=== PATIENT | male | born 1940 | race Caucasian/White ===

== ENCOUNTER 2016-11-08 18:21 | Inpatient (IN) | payer OTHER ==
[~2016-11-08] VITALS: Ht 177.8 cm; Wt 63.6 kg
[~2016-11-08 18:21] MED LIST: ADULT LOW DOSE81 M1 PO; AMOX TR-K CLV1 EAC3 PO; ASPIR-LOW81 MG PO; ASPIRIN81 M1 PO; ASPIRIN81 M2 PO; AUGMENTIN875 MG PO; Apresoline PO; Aspirin E.C. PO; BENZONATATE200 MG PO; CARDIZEM CD120 MG PO; CARTIA XT120 MG PO; CEFTIN250 MG PO; CEFTIN500 MG PO; CIPRO250 MG PO; CIPRO500 MG PO; CLONAZEPAM0.5 MG; CORDARONE200 MG PO; COUMADIN1 MG PO; COUMADIN2 MG PO; COUMADIN2.5 MG PO; COUMADIN3 MG PO; COUMADIN5 MG PO; COUMADIN7.5 MG PO; CYANOCOBAL1000 MCG/2 IM; Cardizem PO; Ceftin PO; Coumadin Protocol PO; Coumadin,Jantoven PO; DIGOXIN125 MCG PO; DIURETIC; DOCUSATE SODIU100 MG PO; Dulcolax PO; ELMIRON100 MG PO; ENDOCET 5-3251 EACH PO; FLOMAX0.4 MG PO; FORTAMET500 M1 PO; FUROSEMIDE20 MG PO; Flomax PO; GLIPIZIDE5 MG PO; GLUCOPHAGE500 MG PO; GLUCOTROL5 MG PO; GUMMIES CHILDR1 EACH PO; Glucophage PO; HYDRALAZINE HCL25 MG; HYDRALAZINE HCL25 MG PO; HYDROCHLOROTHIA25 MG PO; JANTOVEN5 MG PO; K-TAB10 MEQ PO; KEFLEX500 MG PO; KLONOPIN0.5 M1 PO; LASIX20 MG PO; LASIX40 MG PO; LEVAQUIN500 MG PO; LISINOPRIL10 MG; LISINOPRIL10 MG PO; LISINOPRIL2.5 MG PO; LO-DOSE ASPIRIN81 M1 PO; LOPRESSOR50 MG PO; LOVENOX100 MG/1 M SC; LOW DOSE ASPIRI81 M2 PO; Lopressor PO; METFORMIN HCL500 M1 PO; METFORMIN HCL500 MG PO; METOPROLOL PO; METOPROLOL SUC100 MG PO; METOPROLOL SUC200 MG; MICRO-K10 ME2 PO; Micro-K,K-Tab,K-Dur, PO; NAPROSYN500 MG PO; NITROSTAT0.4 MG SL; NORCO 5/3251 TABLET PO; Nitrostat,NitroQuick SL; Oscal 500 w/Vitamin PO; PANTOPRAZOLE SO40 MG PO; PLAVIX75 MG; PLAVIX75 MG PO; POLYETHYLENE GL17 GM PO; POTASSIUM CHLO10 MEQ PO; PRAVACHOL10 MG; PRAVACHOL40 MG PO; PREDNISONE10 MG PO; PRINIVIL10 MG PO; PROAIR HFA8.5 GM IH; PROCRIT10000 UNI1 IV; PROTONIX40 MG PO; Pyridium PO; RENAPLEX PO; Rocephin IV; ST. JOSEPH ASPI81 MG PO; SYMBICORT60 INHALA1 IH; Senokot S,Pericolace PO; Symbicort 80-4.5 mcg IH; TAMSULOSIN HCL0.4 MG PO; THERAGRAN1 TABLET PO; TOPROL XL100 MG PO; TUDORZA PRESS400 MCG IH; TYLENOL EXTRA500 MG PO; TYLENOL REGULA325 MG PO; Theragran PO; Toprol XL PO; VENTOLIN HFA18 GM IH; WARFARIN SODIU2.5 MG PO; WARFARIN SODIUM PO; WARFARIN SODIUM5 MG; WARFARIN SODIUM5 MG PO; XANAX0.25 MG PO; Xanax PO; Zestril,Prinivil PO; Zocor PO; [UNRECOGNIZED DRUG - OTHER]; [UNRECOGNIZED DRUG - REMARK]
[2016-11-08 19:39] LABS: HEMATOCRIT 37.9 % (38.0-50.0); MCH 29.5 PG (29.0-34.0); MCHC 30.9 G/DL (30.0-36.0); MCV 95.5 FL (86-99); MEAN PLAT.VOLUME 8.9 uM^3 (9.0-12.4); PLATELET COUNT 165 K/uL (156-360); RBC DIS.WIDTH-CV 17.1 % (11.8-14.6); RBC DIS.WIDTH-SD 59.5 % (39-53); RED BLOOD COUNT 3.97 M/uL (4.00-5.50); WHITE BLOOD COUNT 4.3 K/uL (4.1-10.2)
[2016-11-08 19:43] LABS: CHLORIDE 93 mEq/L (99-109); SODIUM 131 mEq/L (136-147)
[2016-11-08 19:44] LABS: GLUCOSE 89 mg/dL (70-99)
[2016-11-08 19:46] LABS: ANION GAP 12 MEQ/L (2-14)
[2016-11-08 19:48] LABS: GFR ESTIMATE (CALCULATED) 16 mL/min/
[2016-11-08 19:49] LABS: UREA NITROGEN (BUN) 35 mg/dL (9-23)
[2016-11-08] MEDS ORDERED: KEFLEX500 MG PO (20:24)
[2016-11-08] MEDS ORDERED: LEVO-T25 MCG PO (22:36)
[2016-11-09 00:25] LABS: INTER. NORMALIZED RATIO 2.3; PROTHROMBIN TIME 26.6 (9.2-11.2)
[2016-11-09 06:45] LABS: HEMATOCRIT 35.7 % (38.0-50.0); MCH 29.9 PG (29.0-34.0); MCHC 31.7 G/DL (30.0-36.0); MCV 94.4 FL (86-99); MEAN PLAT.VOLUME 9.8 uM^3 (9.0-12.4); PLATELET COUNT 165 K/uL (156-360); RBC DIS.WIDTH-CV 16.9 % (11.8-14.6); RED BLOOD COUNT 3.78 M/uL (4.00-5.50); WHITE BLOOD COUNT 4.1 K/uL (4.1-10.2)
[2016-11-09 06:46] LABS: CHLORIDE 95 mEq/L (99-109); SODIUM 129 mEq/L (136-147)
[2016-11-09 06:48] LABS: GLUCOSE 127 mg/dL (70-99)
[2016-11-09 06:50] LABS: ANION GAP 14 MEQ/L (2-14); TOTAL BILIRUBIN 0.4 mg/dL (0.0-1.0)
[2016-11-09 06:52] LABS: ALKALINE PHOSPHATASE 161 IU/L (3-129); GFR ESTIMATE (CALCULATED) 14 mL/min/
[2016-11-09 06:53] LABS: UREA NITROGEN (BUN) 41 mg/dL (9-23)
[2016-11-09 06:58] LABS: POTASSIUM ND mEq/L (3.7-5.4)
[2016-11-09 07:01] LABS: EOSINOPHIL (%) 0 % (0-5); IMMATURE GRANULOCYTE (%) 0.2 % (0.0-0.7); LYMPHOCYTE COUNT 0.2 K/uL (1.0-2.8); MONOCYTE (%) 1.2 % (3-12); MONOCYTE COUNT 0.1 K/uL (0-0.8); NEUTROPHIL (%) 94.4 % (45-76); NEUTROPHIL COUNT 3.8 K/uL (1.8-6.4)
[2016-11-09 07:27] LABS: POINT-OF-CARE METER ID UU13113702
[2016-11-09 08:01] LABS: POTASSIUM 5.7 MEQ/L (3.7-5.4)
[2016-11-09 11:49] LABS: POINT-OF-CARE METER ID UU13113702
[2016-11-09 21:18] LABS: POINT-OF-CARE METER ID UU13113725
[2016-11-09 21:22] LABS: METH RESISTANT S AUREUS PCR POSITIVE (NEGATIVE)
[2016-11-09 21:27] LABS: PROBE CHECK PASS; SPECIMEN PROCESSING CONTROL PASS
[2016-11-09 22:40] VITALS: BP 114/66
[2016-11-10 03:41] VITALS: BP 104/58
[2016-11-10 08:02] LABS: INTER. NORMALIZED RATIO 3.7
[2016-11-10 08:16] VITALS: BP 106/59
[2016-11-10 11:10] VITALS: BP 99/61
[2016-11-10 11:45] LABS: POINT-OF-CARE METER ID UU13113725
[2016-11-10 14:01] VITALS: BP 112/64
[2016-11-10 15:47] VITALS: BP 138/64
[2016-11-10 22:40] VITALS: BP 113/57
[2016-11-11 03:12] VITALS: BP 113/62
[2016-11-11 05:52] LABS: POINT-OF-CARE METER ID UU13113725
[2016-11-11 08:25] LABS: ANION GAP 13 MEQ/L (2-14); CHLORIDE 95 MEQ/L (99-109); SAMPLE HEMOLYSIS CHECK 0; SAMPLE ICTERIC CHECK 0; SAMPLE LIPEMIA CHECK 0; SODIUM 132 MEQ/L (136-147); UREA NITROGEN (BUN) 41 mg/dL (9-23)
[2016-11-11 08:29] LABS: GFR ESTIMATE (CALCULATED) 18 mL/min/; GLUCOSE 219 mg/dL (70-99); POTASSIUM 4.4 MEQ/L (3.7-5.4)
[2016-11-11 10:24] LABS: INTER. NORMALIZED RATIO 4.3; PROTHROMBIN TIME 46.1 (9.2-11.2)
[2016-11-11 11:14] LABS: EOSINOPHIL (%) 0 % (0-5); IMMATURE GRANULOCYTE (%) 0.4 % (0.0-0.7); LYMPHOCYTE COUNT 0.1 K/uL (1.0-2.8); MCH 30.4 PG (29.0-34.0); MCHC 30.8 G/DL (30.0-36.0); MCV 98.7 FL (86-99); MEAN PLAT.VOLUME 9.7 uM^3 (9.0-12.4); MONOCYTE (%) 5.7 % (3-12); MONOCYTE COUNT 0.4 K/uL (0-0.8); NEUTROPHIL (%) 92.2 % (45-76); NEUTROPHIL COUNT 7.1 K/uL (1.8-6.4); NRBC (%) 0.3 /100 WBC (0-0); PLATELET COUNT 168 K/uL (156-360); RBC DIS.WIDTH-SD 60.6 % (39-53); RED BLOOD COUNT 3.75 M/uL (4.00-5.50); WHITE BLOOD COUNT 7.7 K/uL (4.1-10.2)
[2016-11-11 17:36] VITALS: BP 106/58
[2016-11-11 23:32] VITALS: BP 106/59
[2016-11-12 06:16] LABS: INTER. NORMALIZED RATIO 3.1
[2016-11-12 06:22] LABS: PROTHROMBIN TIME 32.4 (9.2-11.2)
[2016-11-12 08:58] VITALS: BP 110/72
[2016-11-12 16:49] VITALS: BP 118/68
[2016-11-13 00:01] VITALS: BP 136/67
[2016-11-13 03:54] VITALS: BP 117/67
[2016-11-13 08:27] LABS: HEMATOCRIT 36.6 % (38.0-50.0); MCH 30.6 PG (29.0-34.0); MCHC 31.4 G/DL (30.0-36.0); MCV 97.3 FL (86-99); MEAN PLAT.VOLUME 9.5 uM^3 (9.0-12.4); NRBC (%) 1.2 /100 WBC (0-0); PLATELET COUNT 170 K/uL (156-360); RBC DIS.WIDTH-CV 16.9 % (11.8-14.6); RBC DIS.WIDTH-SD 58.1 % (39-53); RED BLOOD COUNT 3.76 M/uL (4.00-5.50); WHITE BLOOD COUNT 8.8 K/uL (4.1-10.2)
[2016-11-13 08:28] LABS: EOSINOPHIL (%) 0 % (0-5); IMMATURE GRANULOCYTE (%) 0.7 % (0.0-0.7); IMMATURE GRANULOCYTE COUNT 0.1 K/uL; LYMPHOCYTE COUNT 0.5 K/uL (1.0-2.8); MONOCYTE (%) 2.5 % (3-12); MONOCYTE COUNT 0.2 K/uL (0-0.8)
[2016-11-13 08:34] LABS: INTER. NORMALIZED RATIO 2.6; PROTHROMBIN TIME 27.3 (9.2-11.2)
[2016-11-13 08:39] LABS: ANION GAP 10 MEQ/L (2-14); CHLORIDE 93 MEQ/L (99-109); POTASSIUM 4.5 MEQ/L (3.7-5.4); SAMPLE HEMOLYSIS CHECK 0; SAMPLE ICTERIC CHECK 0; SAMPLE LIPEMIA CHECK 0; SODIUM 128 MEQ/L (136-147)
[2016-11-13 08:45] LABS: GFR ESTIMATE (CALCULATED) 19 mL/min/; GLUCOSE 258 mg/dL (70-99); UREA NITROGEN (BUN) 41 mg/dL (9-23)
[2016-11-13 12:31] VITALS: BP 100/60
[2016-11-13] MEDS ORDERED: SPIRIVA1 INHALATI IH (17:01)
[2016-11-13] MEDS ORDERED: ADVAIR 250/501 DISK IH (17:03)
[2016-11-13] MEDS ORDERED: DELTASONE20 M1 PO (17:03)
== END 2016-11-13 18:10 | disposition home health service (06) | DRG 190 ==
LOC: EME 18:21 → EDOF 22:30 → 5EAST 22:30
PROVIDERS: Internal Medicine; Internal Medicine Nephrology
PROC: 5A1D60Z (ICD-10-PCS; principal; 2016-11-09)
PROC: 0J993ZZ Drainage of Buttock Subcutaneous Tissue and Fascia, Percutaneous Approach (ICD-10-PCS; 2016-11-10)
DX: J44.1 Chronic obstructive pulmonary disease with (acute) exacerbation (principal); N18.6 End stage renal disease; I13.2 Hypertensive heart and chronic kidney disease with heart failure and with stage 5 chronic kidney disease, or end stage renal disease; E11.22 Type 2 diabetes mellitus with diabetic chronic kidney disease; I50.30 Unspecified diastolic (congestive) heart failure; J44.0 Chronic obstructive pulmonary disease with (acute) lower respiratory infection; J20.9 Acute bronchitis, unspecified; L02.31 Cutaneous abscess of buttock; B95.62 Methicillin resistant Staphylococcus aureus infection as the cause of diseases classified elsewhere; L89.210 Pressure ulcer of right hip, unstageable; D64.9 Anemia, unspecified; E87.1 Hypo-osmolality and hyponatremia; E87.2 Acidosis; E87.5 Hyperkalemia; J90 Pleural effusion, not elsewhere classified; I48.2 Chronic atrial fibrillation; I25.10 Atherosclerotic heart disease of native coronary artery without angina pectoris; I25.2 Old myocardial infarction; I25.5 Ischemic cardiomyopathy; E03.9 Hypothyroidism, unspecified; E78.5 Hyperlipidemia, unspecified; K21.9 Gastro-esophageal reflux disease without esophagitis; N40.0 Benign prostatic hyperplasia without lower urinary tract symptoms; F32.9 Major depressive disorder, single episode, unspecified; F41.9 Anxiety disorder, unspecified; M19.90 Unspecified osteoarthritis, unspecified site; G47.33 Obstructive sleep apnea (adult) (pediatric); R29.6 Repeated falls; Z99.2 Dependence on renal dialysis; Z95.5 Presence of coronary angioplasty implant and graft; Z86.73 Personal history of transient ischemic attack (TIA), and cerebral infarction without residual deficits; Z85.118 Personal history of other malignant neoplasm of bronchus and lung; Z85.51 Personal history of malignant neoplasm of bladder; Z87.891 Personal history of nicotine dependence; Z86.711 Personal history of pulmonary embolism; Z86.718 Personal history of other venous thrombosis and embolism; Z79.01 Long term (current) use of anticoagulants; Z79.82 Long term (current) use of aspirin
CPT/HCPCS: 71020; 71250; 80048; 80053; 80069; 81003; 82948; 84999; 85025; 85027; 85610; 87040; 87070; 87075; 87077; 87086; 87147; 87186; 87205; 87641; 93005; 94640; 94640 76; 94644; 94760; 94799; 99202; 99281; 99284; J0696; J0881; J1815; J2930; J7030; J7040; J7050; J7512

== ENCOUNTER 2016-11-15 10:22 | Emergency (ER) | payer OTHER ==
[~2016-11-15] VITALS: Ht 177.8 cm; Wt 70.8 kg
[~2016-11-15 10:22] MED LIST changes: +ADVAIR 250/501 DISK IH; +DELTASONE20 M1 PO; +LEVO-T25 MCG PO; +SPIRIVA1 INHALATI IH
[2016-11-15 11:08] LABS: HEMATOCRIT 40.6 % (38.0-50.0); MCH 30.6 PG (29.0-34.0); MCHC 31.5 G/DL (30.0-36.0); MCV 97.1 FL (86-99); MEAN PLAT.VOLUME 9.2 uM^3 (9.0-12.4); PLATELET COUNT 153 K/uL (156-360); RBC DIS.WIDTH-CV 18.2 % (11.8-14.6); RBC DIS.WIDTH-SD 57.4 % (39-53); RED BLOOD COUNT 4.18 M/uL (4.00-5.50)
[2016-11-15 11:15] LABS: CHLORIDE 94 mEq/L (99-109); POTASSIUM 4.6 mEq/L (3.7-5.4); SODIUM 131 mEq/L (136-147)
[2016-11-15 11:16] LABS: PROTHROMBIN TIME 20.9 (9.2-11.2); PTT 34.2 (25-32)
[2016-11-15 11:17] LABS: GLUCOSE 253 mg/dL (70-99)
[2016-11-15 11:18] LABS: ANION GAP 11 MEQ/L (2-14)
[2016-11-15 11:21] LABS: GFR ESTIMATE (CALCULATED) 17 mL/min/; UREA NITROGEN (BUN) 44 mg/dL (9-23)
[2016-11-15 20:11] LABS: POINT-OF-CARE METER ID UU13113702; POINT-OF-CARE USER ID SNPMEH
[2016-11-15 22:09] VITALS: BP 106/64
== END 2016-11-15 22:30 | disposition home or self-care (01) ==
LOC: EME 10:22
PROVIDERS: Emergency Medicine
DX: N18.6 End stage renal disease (principal); R60.0 Localized edema; E11.9 Type 2 diabetes mellitus without complications; E78.5 Hyperlipidemia, unspecified; I25.2 Old myocardial infarction; Z99.2 Dependence on renal dialysis; Z85.51 Personal history of malignant neoplasm of bladder; Z88.2 Allergy status to sulfonamides; Z88.1 Allergy status to other antibiotic agents; Z86.73 Personal history of transient ischemic attack (TIA), and cerebral infarction without residual deficits
CPT/HCPCS: 71020; 80048; 82948; 85027; 85610; 85730; 93971; 99281; 99284

== ENCOUNTER 2017-01-17 00:26 | Inpatient (IN) | payer OTHER ==
[~2017-01-17] VITALS: Ht 177.8 cm; Wt 62.0 kg
[2017-01-17 01:13] LABS: HEMATOCRIT 37.6 % (38.0-50.0); MCH 30.9 PG (29.0-34.0); MCHC 31.1 G/DL (30.0-36.0); MCV 99.2 FL (86-99); MEAN PLAT.VOLUME 9.8 uM^3 (9.0-12.4); PLATELET COUNT 141 K/uL (156-360); RBC DIS.WIDTH-CV 16.8 % (11.8-14.6); RBC DIS.WIDTH-SD 61.7 % (39-53); RED BLOOD COUNT 3.79 M/uL (4.00-5.50); WHITE BLOOD COUNT 6.1 K/uL (4.1-10.2)
[2017-01-17 01:26] LABS: CHLORIDE 100 mEq/L (99-109); POTASSIUM 5.4 mEq/L (3.7-5.4); SODIUM 137 mEq/L (136-147)
[2017-01-17 01:28] LABS: GLUCOSE 131 mg/dL (70-99)
[2017-01-17 01:29] LABS: ANION GAP 12 MEQ/L (2-14)
[2017-01-17 01:32] LABS: GFR ESTIMATE (CALCULATED) 17 mL/min/
[2017-01-17 01:33] LABS: UREA NITROGEN (BUN) 23 mg/dL (9-23)
[2017-01-17 01:34] LABS: TROP-I INTERPRETATION NEGATIVE; TROPONIN-I 0.05 ng/mL (0.0-0.30)
[2017-01-17] MEDS ORDERED: MIDODRINE HCL5 MG PO (02:23)
[2017-01-17] MEDS ORDERED: COUMADIN2.5 MG PO (02:25)
[2017-01-17] MEDS ORDERED: BREO ELLIPTA I1 EACH IH (02:28)
[2017-01-17] MEDS ORDERED: INCRUSE ELLI62.5 MCG IH (02:28)
[2017-01-17 04:52] VITALS: BP 99/62
[2017-01-17 06:46] LABS: INTER. NORMALIZED RATIO 1.7; PROTHROMBIN TIME 17.1 (9.2-11.2)
[2017-01-17 07:24] VITALS: BP 99/62
[2017-01-17 07:42] VITALS: BP 100/62
[2017-01-17 09:08] LABS: METH RESISTANT S AUREUS PCR POSITIVE (NEGATIVE)
[2017-01-17 09:10] LABS: PROBE CHECK PASS
[2017-01-17 11:40] VITALS: BP 108/60
[2017-01-17] MEDS ORDERED: NITROSTAT0.4 MG SL (12:49)
[2017-01-17] MEDS ORDERED: [UNRECOGNIZED DRUG - OTHER] PO (12:49)
[2017-01-17] MEDS ORDERED: CYANOCOBAL1000 MCG/2 IM (12:52)
[2017-01-17 16:30] VITALS: BP 100/54
[2017-01-17 18:59] LABS: COLOR AMBER ((YELLOW)); LEUKOCYTES LARGE; SPECIFIC GRAVITY 1.025 (1.000-1.030)
[2017-01-17 19:00] LABS: ADD MIUA? YES; BILIRUBIN NEGATIVE; BLOOD LARGE; GLUCOSE (STRIP) NEGATIVE; KETONES NEGATIVE; NITRITE NEGATIVE; PROTEIN (STRIP) 2000; UROBILINOGEN 0.2 MG/DL (0.2-1.0)
[2017-01-17 19:01] LABS: EPITHELIAL CELLS NONE SEEN /HPF; MUCUS NONE SEEN /LPF; RED BLOOD CELLS 0-5 /HPF (0-5); WHITE BLOOD CELLS TNTC /HPF (0-5)
[2017-01-17 19:02] LABS: BACTERIA 1+ /HPF
[2017-01-17 20:03] VITALS: BP 114/58
[2017-01-18] VITALS (13 sets, daily range): BP systolic 60–111; BP diastolic 34–67
[2017-01-18 07:07] LABS: POINT-OF-CARE METER ID UU14149397
[2017-01-18 08:20] LABS: EOSINOPHIL (%) 0 % (0-5); HEMATOCRIT 36.7 % (38.0-50.0); IMMATURE GRANULOCYTE (%) 0.6 % (0.0-0.7); INSTRUMENT ABS NEUTROPHIL CT 5.6 K/uL; LYMPHOCYTE COUNT 0.6 K/uL (1.0-2.8); MCH 30.8 PG (29.0-34.0); MCHC 30.2 G/DL (30.0-36.0); MCV 101.9 FL (86-99); MEAN PLAT.VOLUME 9.5 uM^3 (9.0-12.4); MONOCYTE COUNT 0.9 K/uL (0-0.8); NEUTROPHIL (%) 77.7 % (45-76); NEUTROPHIL COUNT 5.6 K/uL (1.8-6.4); PLATELET COUNT 151 K/uL (156-360); RBC DIS.WIDTH-CV 16.3 % (11.8-14.6); RBC DIS.WIDTH-SD 61.9 % (39-53); WHITE BLOOD COUNT 7.2 K/uL (4.1-10.2)
[2017-01-18 08:38] LABS: PROTHROMBIN TIME 20.5 (9.2-11.2)
[2017-01-18 08:46] LABS: ALKALINE PHOSPHATASE 163 IU/L (3-129); ANION GAP 11 MEQ/L (2-14); CHLORIDE 96 MEQ/L (99-109); GLUCOSE 149 mg/dL (70-99); SAMPLE HEMOLYSIS CHECK 0; SAMPLE ICTERIC CHECK 0; SAMPLE LIPEMIA CHECK 0; SODIUM 133 MEQ/L (136-147); TOTAL BILIRUBIN 0.6 MG/DL (0.0-1.0)
[2017-01-18 08:47] LABS: GFR ESTIMATE (CALCULATED) 12 mL/min/; POTASSIUM 6.6 MEQ/L (3.7-5.4); UREA NITROGEN (BUN) 39 mg/dL (9-23)
[2017-01-18 19:47] LABS: METH RESISTANT S AUREUS PCR POSITIVE (NEGATIVE)
[2017-01-18 19:53] LABS: PROBE CHECK PASS
== END 2017-01-18 20:24 | DRG 871 ==
LOC: EME → EDBD 00:26 → EME 00:26 → 3EAST 02:11 → EDOF 02:11 → 4WEST 02:11 → 3EAST 03:56 → 4WEST 01-18 17:54
PROVIDERS: Emergency Medicine; Internal Medicine; Internal Medicine Nephrology; Internal Medicine Pulmonary Disease
PROC: 5A1D00Z (ICD-10-PCS; principal; 2017-01-18)
PROC: 05HM33Z Insertion of Infusion Device into Right Internal Jugular Vein, Percutaneous Approach (ICD-10-PCS; 2017-01-18)
PROC: 5A12012 Performance of Cardiac Output, Single, Manual (ICD-10-PCS; 2017-01-18)
DX: A41.9 Sepsis, unspecified organism (principal); R65.21 Severe sepsis with septic shock; E86.0 Dehydration; I13.2 Hypertensive heart and chronic kidney disease with heart failure and with stage 5 chronic kidney disease, or end stage renal disease; I50.32 Chronic diastolic (congestive) heart failure; E11.22 Type 2 diabetes mellitus with diabetic chronic kidney disease; N18.6 End stage renal disease; G93.40 Encephalopathy, unspecified; N39.0 Urinary tract infection, site not specified; Z66 Do not resuscitate; Z51.5 Encounter for palliative care; J44.9 Chronic obstructive pulmonary disease, unspecified; E78.5 Hyperlipidemia, unspecified; N40.0 Benign prostatic hyperplasia without lower urinary tract symptoms; K21.9 Gastro-esophageal reflux disease without esophagitis; G47.33 Obstructive sleep apnea (adult) (pediatric); I25.5 Ischemic cardiomyopathy; I48.2 Chronic atrial fibrillation; E53.8 Deficiency of other specified B group vitamins; E03.9 Hypothyroidism, unspecified; L89.210 Pressure ulcer of right hip, unstageable; T81.89XA Other complications of procedures, not elsewhere classified, initial encounter; Y83.8 Other surgical procedures as the cause of abnormal reaction of the patient, or of later complication, without mention of misadventure at the time of the procedure; C44.529 Squamous cell carcinoma of skin of other part of trunk; L89.620 Pressure ulcer of left heel, unstageable; L89.610 Pressure ulcer of right heel, unstageable; S51.002A Unspecified open wound of left elbow, initial encounter; X58.XXXA Exposure to other specified factors, initial encounter; L22 Diaper dermatitis; E87.5 Hyperkalemia; I46.9 Cardiac arrest, cause unspecified; D63.1 Anemia in chronic kidney disease; Z99.2 Dependence on renal dialysis; I25.2 Old myocardial infarction; Z86.73 Personal history of transient ischemic attack (TIA), and cerebral infarction without residual deficits; Z85.118 Personal history of other malignant neoplasm of bronchus and lung; Z85.51 Personal history of malignant neoplasm of bladder; Z88.2 Allergy status to sulfonamides; Z87.891 Personal history of nicotine dependence; Z79.01 Long term (current) use of anticoagulants; Z79.82 Long term (current) use of aspirin
CPT/HCPCS: 71010; 80048; 80053; 81003; 82948; 83605; 83880; 84132 91; 84484; 85025; 85027; 85610; 87040; 87086; 87106; 87641; 93005; 94640; 94640 76; 94760; 94799; 99281; 99285; J0461; J1815; J2405; J7030; J7040; J7050